=== PATIENT | female | born 1945 | race Caucasian/White ===

== ENCOUNTER → 2017-05-24 | Outpatient (CLI) | payer MEDICARE | LOC: M.WC 01:51 | DX: I87.333 Chronic venous hypertension (idiopathic) with ulcer and inflammation of bilateral lower extremity (principal); L97.521 Non-pressure chronic ulcer of other part of left foot limited to breakdown of skin; L97.511 Non-pressure chronic ulcer of other part of right foot limited to breakdown of skin; I89.0 Lymphedema, not elsewhere classified; I25.10 Atherosclerotic heart disease of native coronary artery without angina pectoris; E78.2 Mixed hyperlipidemia; M19.90 Unspecified osteoarthritis, unspecified site; M85.80 Other specified disorders of bone density and structure, unspecified site; E66.01 Morbid (severe) obesity due to excess calories; F33.1 Major depressive disorder, recurrent, moderate; Z85.3 Personal history of malignant neoplasm of breast; Z68.42 Body mass index [BMI] 45.0-49.9, adult ==

== ENCOUNTER → 2017-06-07 | Outpatient (CLI) | payer MEDICARE | LOC: M.WC 01:25 | DX: I87.333 Chronic venous hypertension (idiopathic) with ulcer and inflammation of bilateral lower extremity (principal); L97.511 Non-pressure chronic ulcer of other part of right foot limited to breakdown of skin; L97.521 Non-pressure chronic ulcer of other part of left foot limited to breakdown of skin; I89.0 Lymphedema, not elsewhere classified; I25.10 Atherosclerotic heart disease of native coronary artery without angina pectoris; E78.2 Mixed hyperlipidemia; F33.1 Major depressive disorder, recurrent, moderate; G47.00 Insomnia, unspecified; E66.01 Morbid (severe) obesity due to excess calories; Z68.42 Body mass index [BMI] 45.0-49.9, adult; Z85.3 Personal history of malignant neoplasm of breast; M19.90 Unspecified osteoarthritis, unspecified site ==

== ENCOUNTER → 2017-06-21 | Outpatient (CLI) | payer MEDICARE | LOC: M.WC 01:27 | DX: I87.331 Chronic venous hypertension (idiopathic) with ulcer and inflammation of right lower extremity (principal); L97.511 Non-pressure chronic ulcer of other part of right foot limited to breakdown of skin; I89.0 Lymphedema, not elsewhere classified; I25.10 Atherosclerotic heart disease of native coronary artery without angina pectoris; E78.2 Mixed hyperlipidemia; I10 Essential (primary) hypertension; M19.90 Unspecified osteoarthritis, unspecified site; M85.80 Other specified disorders of bone density and structure, unspecified site; E66.01 Morbid (severe) obesity due to excess calories; F33.1 Major depressive disorder, recurrent, moderate; Z68.42 Body mass index [BMI] 45.0-49.9, adult; Z85.3 Personal history of malignant neoplasm of breast ==

== ENCOUNTER → 2017-07-05 | Outpatient (CLI) | payer MEDICARE | LOC: M.WC 01:45 | DX: I87.333 Chronic venous hypertension (idiopathic) with ulcer and inflammation of bilateral lower extremity (principal); L97.511 Non-pressure chronic ulcer of other part of right foot limited to breakdown of skin; L97.521 Non-pressure chronic ulcer of other part of left foot limited to breakdown of skin; I89.0 Lymphedema, not elsewhere classified; L89.893 Pressure ulcer of other site, stage 3; I25.10 Atherosclerotic heart disease of native coronary artery without angina pectoris; E78.2 Mixed hyperlipidemia; F33.1 Major depressive disorder, recurrent, moderate; G47.00 Insomnia, unspecified; F32.9 Major depressive disorder, single episode, unspecified; Z85.3 Personal history of malignant neoplasm of breast; M19.90 Unspecified osteoarthritis, unspecified site; E66.01 Morbid (severe) obesity due to excess calories; Z68.42 Body mass index [BMI] 45.0-49.9, adult ==

== ENCOUNTER → 2017-07-19 | Outpatient (CLI) | payer MEDICARE | LOC: M.WC 03:28 | DX: L97.521 Non-pressure chronic ulcer of other part of left foot limited to breakdown of skin (principal); I87.331 Chronic venous hypertension (idiopathic) with ulcer and inflammation of right lower extremity; I89.0 Lymphedema, not elsewhere classified; I25.10 Atherosclerotic heart disease of native coronary artery without angina pectoris; E78.2 Mixed hyperlipidemia; M19.90 Unspecified osteoarthritis, unspecified site; M85.80 Other specified disorders of bone density and structure, unspecified site; E66.01 Morbid (severe) obesity due to excess calories; F33.1 Major depressive disorder, recurrent, moderate; Z68.42 Body mass index [BMI] 45.0-49.9, adult; Z85.3 Personal history of malignant neoplasm of breast ==

== ENCOUNTER → 2017-07-26 | Outpatient (CLI) | payer MEDICARE ==
[2017-07-26 14:23] LABS: CALCIUM 8.6 mg/dL (8.5-10.1)
== END ==
LOC: M.WC 13:00
PROVIDERS: Podiatrist Foot & Ankle Surgery
DX: I87.333 Chronic venous hypertension (idiopathic) with ulcer and inflammation of bilateral lower extremity (principal); L97.511 Non-pressure chronic ulcer of other part of right foot limited to breakdown of skin; L97.521 Non-pressure chronic ulcer of other part of left foot limited to breakdown of skin; L89.893 Pressure ulcer of other site, stage 3; I89.0 Lymphedema, not elsewhere classified; E78.2 Mixed hyperlipidemia; F33.1 Major depressive disorder, recurrent, moderate; G47.00 Insomnia, unspecified; F32.9 Major depressive disorder, single episode, unspecified; M19.90 Unspecified osteoarthritis, unspecified site; E66.01 Morbid (severe) obesity due to excess calories; Z85.3 Personal history of malignant neoplasm of breast; Z68.42 Body mass index [BMI] 45.0-49.9, adult

== ENCOUNTER → 2017-07-27 | Outpatient (CLI) | payer MEDICARE | LOC: M.MRI 15:50 | DX: L97.519 Non-pressure chronic ulcer of other part of right foot with unspecified severity (principal); M79.674 Pain in right toe(s) ==

== ENCOUNTER → 2017-08-02 | Outpatient (CLI) | payer MEDICARE ==
--- NOTE | 2017-08-04 15:14 | S ---
[place] [address] SURGICAL PATH RPT PROCEDURE Name: ROSARIO PORTER Room: [facility]#: [id number] Admission: 08/02/17 Date of : 43 Discharge: Report #: [id number] Path Case #: [id number] PATHOLOGY REPORT COLLECTION DATE: 08/02/2017 RECEIVED DATE: 08/03/2017 SUBMITTING PHYS: Dr. Francisco Saenz OTHER PHYS: Dr. Danielle Nuñez SPECIMEN(S) RECEIVED: A.Biopsy, right great toe * * * * * * * * * * * * FINAL DIAGNOSIS: Soft tissue, "biopsy right great toe": - Acute ulceration with necrotic acute inflammatory exudate extending deeply into the underlying soft tissue. - There is no evidence of malignancy. (SHA:emil; 08/04/2017) COMMENT: The entire tissue consists of inflammation and granulation tissue and ulceration. No evidence of skin is identified. Suggest clinical correlation. (SHA:emil; 08/04/2017) PATHOLOGIST: Yosef Ribera M.D. REPORT ELECTRONICALLY SIGNED BY: Yosef Ribera M.D. DATE/TIME: 08/04/2017 15:14 * * * * * * * * * * * * GROSS PATHOLOGY: Received in formalin labeled "Rosario Porter, right great toe" and consists of a 0.4 x 0.3 x 0.2 cm villa-brown tissue fragment which is entirely submitted as A1. (GABRIELLE; 08/03/2017) CLINICAL HISTORY: Ulcer of toe INITIAL CPT CODE(S): A; 08772 Professional services performed by [facility] at [facility] [address] [place] [address] SURGICAL PATH RPT PROCEDURE Name: ROSARIO PORTER Room: [facility].#: [id number] Admission: 08/02/17 Date of : 43 Discharge: Report #: [id number] Path Case #: [id number] [facility] at [address] [place] [address], [place] [address]. [facility] [address] [place] [address] PHONE: [phone] DIRECTOR: Himanshu Khalil M.D. * * * END OF REPORT * * *
== END ==
LOC: M.WC 01:56
DX: I87.333 Chronic venous hypertension (idiopathic) with ulcer and inflammation of bilateral lower extremity (principal); L97.511 Non-pressure chronic ulcer of other part of right foot limited to breakdown of skin; L97.521 Non-pressure chronic ulcer of other part of left foot limited to breakdown of skin; L89.893 Pressure ulcer of other site, stage 3; I89.0 Lymphedema, not elsewhere classified; I25.10 Atherosclerotic heart disease of native coronary artery without angina pectoris; E78.2 Mixed hyperlipidemia; F33.1 Major depressive disorder, recurrent, moderate; G47.00 Insomnia, unspecified; E66.01 Morbid (severe) obesity due to excess calories; Z68.42 Body mass index [BMI] 45.0-49.9, adult; M19.90 Unspecified osteoarthritis, unspecified site

== ENCOUNTER → 2017-08-16 | Outpatient (CLI) | payer MEDICARE | LOC: M.WC 02:24 | DX: I87.333 Chronic venous hypertension (idiopathic) with ulcer and inflammation of bilateral lower extremity (principal); L97.511 Non-pressure chronic ulcer of other part of right foot limited to breakdown of skin; L97.521 Non-pressure chronic ulcer of other part of left foot limited to breakdown of skin; L89.893 Pressure ulcer of other site, stage 3; I89.0 Lymphedema, not elsewhere classified; I25.10 Atherosclerotic heart disease of native coronary artery without angina pectoris; E78.2 Mixed hyperlipidemia; F33.1 Major depressive disorder, recurrent, moderate; G47.00 Insomnia, unspecified; D21.21 Benign neoplasm of connective and other soft tissue of right lower limb, including hip; E66.01 Morbid (severe) obesity due to excess calories; Z68.42 Body mass index [BMI] 45.0-49.9, adult; F32.9 Major depressive disorder, single episode, unspecified; M19.90 Unspecified osteoarthritis, unspecified site ==

== ENCOUNTER → 2017-08-30 | Outpatient (CLI) | payer MEDICARE | LOC: M.WC 02:50 | DX: I87.333 Chronic venous hypertension (idiopathic) with ulcer and inflammation of bilateral lower extremity (principal); L97.511 Non-pressure chronic ulcer of other part of right foot limited to breakdown of skin; L97.521 Non-pressure chronic ulcer of other part of left foot limited to breakdown of skin; I89.0 Lymphedema, not elsewhere classified; I25.10 Atherosclerotic heart disease of native coronary artery without angina pectoris; E66.01 Morbid (severe) obesity due to excess calories; E78.2 Mixed hyperlipidemia; M19.90 Unspecified osteoarthritis, unspecified site; G47.00 Insomnia, unspecified; F33.1 Major depressive disorder, recurrent, moderate; Z68.42 Body mass index [BMI] 45.0-49.9, adult; Z85.3 Personal history of malignant neoplasm of breast ==

== ENCOUNTER → 2017-09-13 | Outpatient (CLI) | payer MEDICARE | LOC: M.WC 04:30 | DX: I87.333 Chronic venous hypertension (idiopathic) with ulcer and inflammation of bilateral lower extremity (principal); L97.522 Non-pressure chronic ulcer of other part of left foot with fat layer exposed; L97.511 Non-pressure chronic ulcer of other part of right foot limited to breakdown of skin; I89.0 Lymphedema, not elsewhere classified; I10 Essential (primary) hypertension; I25.10 Atherosclerotic heart disease of native coronary artery without angina pectoris; E78.2 Mixed hyperlipidemia; M19.90 Unspecified osteoarthritis, unspecified site; G47.00 Insomnia, unspecified; G47.30 Sleep apnea, unspecified; F33.1 Major depressive disorder, recurrent, moderate; Z68.42 Body mass index [BMI] 45.0-49.9, adult; Z85.3 Personal history of malignant neoplasm of breast ==

== ENCOUNTER → 2017-09-27 | Outpatient (CLI) | payer MEDICARE | LOC: M.WC 01:48 | DX: I87.333 Chronic venous hypertension (idiopathic) with ulcer and inflammation of bilateral lower extremity (principal); L97.511 Non-pressure chronic ulcer of other part of right foot limited to breakdown of skin; L97.521 Non-pressure chronic ulcer of other part of left foot limited to breakdown of skin; I89.0 Lymphedema, not elsewhere classified; I25.10 Atherosclerotic heart disease of native coronary artery without angina pectoris; E78.2 Mixed hyperlipidemia; F33.1 Major depressive disorder, recurrent, moderate; G47.00 Insomnia, unspecified; M19.90 Unspecified osteoarthritis, unspecified site; E66.01 Morbid (severe) obesity due to excess calories; Z68.42 Body mass index [BMI] 45.0-49.9, adult; Z85.3 Personal history of malignant neoplasm of breast ==